=== PATIENT | female | born 1950 | race Caucasian/White ===

== ENCOUNTER 2021-01-05 14:59 | Emergency (ER) | payer BC, MEDICARE ==
[2021-01-05] MEDS ORDERED: Rivaroxaban 15 MG Tab PO STA (15:21)
[2021-01-05] MEDS ORDERED: Enoxaparin 100 MG/1 ML Syringe SUBCUT ONE (15:22)
[2021-01-05] MEDS ORDERED: Sodium Chloride 0.9% 10 ML Syringe FLUSH PRN (15:32)
[2021-01-05] MEDS ORDERED: HYDROmorphone 0.5 MG/0.5 ML Syringe IVPUSH ONE ×2 (15:35→19:51)
[2021-01-05] MEDS ORDERED: Ondansetron 4 MG/2 ML SDV IVPUSH ONE (15:35)
[2021-01-05] MEDS ORDERED: Sodium Chloride 0.9% 1,000 ML IV SCH (15:45)
--- NOTE | 2021-01-05 16:12 | EDM.PDOC ---
ED HPI GENERAL MEDICAL PROBLEM - General Chief Complaint: Lower Extremity Injury/Pain Stated Complaint: BLOOD CLOT IN R LEG Time Seen by Provider: 01/05/21 15:15 Source of Information: Reports: Patient History Limitations: Reports: No Limitations, Other (ED vital signs reveal a temp of 98.1, pulse of 62, respiratory rate of 16, blood pressure 190/68, pulse ox 96% on room air.) - History of Present Illness INITIAL COMMENTS - FREE TEXT/NARRATIVE: 70-year-old female presents to the emergency department today with complaints of pain to her right hip. 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 She was seen at the clinic by her primary care provider Lazara Romero who sent her here to [facility] to have an ultrasound of the right lower extremity and a right hip x-ray. Ultrasound of right lower extremity reveals posterior tibial veins appears to show some clot. Peroneal vein is not visualized. Mild subcutaneous edema. No additional venous abnormality is seen. Radiologist impression of the x-ray of the right hip: 1. Slight joint space narrowing within the right hip 2. Right hip exam is otherwise unremarkable. Patient denies any history of blood clots in the past. She does not smoke. She does not take any prescription medications as she states she took herself off of all of them. She denies any recent fever, chills, cough, shortness of breath, nausea, vomiting or diarrhea. She is fairly uncomfortable sitting in the bed with her right leg flexed. Right Groin Pain Score (Numeric/FACES): 10 - Related Data Allergies Allergy/AdvReac Type Severity Reaction Status Date / Time morphine Allergy Rash Verified 01/05/21 15:10 Penicillins Allergy Rash Verified 01/05/21 15:10 keerthi Allergy Cannot Verified 01/05/21 15:10 Remember Home Meds: Home Meds ursodioL [Ursodiol] 500 mg PO TID 01/05/21 [History] Past Medical History Gastrointestinal History: Reports: Other (See Below) Other Gastrointestinal History: primary biliary cirrhosis Stage I Endocrine/Metabolic History: Reports: Other (See Below) Other Endocrine/Metabolic History: unexplained bruising - Past Surgical History HEENT Surgical History: Reports: Cataract Surgery Musculoskeletal Surgical History: Reports: Knee Replacement, Shoulder Surgery Social & Family History - Tobacco Use Tobacco Use Status *Q: Never Tobacco User Second Hand Smoke Exposure: No - Recreational Drug Use Recreational Drug Use: No Review of Systems - Review of Systems Review Of Systems: See Below Constitutional: Reports: No Symptoms. Denies: Chills, Diaphoresis, Fever, Weakness Eyes: Reports: No Symptoms Ears: Reports: No Symptoms Nose: Reports: No Symptoms Mouth/Throat: Reports: No Symptoms Respiratory: Reports: No Symptoms. Denies: Shortness of Breath, Pleuritic Chest Pain, Cough GI/Abdominal: Reports: Abdominal Pain (right lower quadrant). Denies: Constipation, Diarrhea, Nausea, Vomiting Genitourinary: Reports: No Symptoms Musculoskeletal: Reports: Leg Pain (right lower extremity) Skin: Reports: No Symptoms Neurological: Reports: No Symptoms Psychiatric: Reports: Agitation ED EXAM, GENERAL - Physical Exam Exam: See Below Exam Limited By: No Limitations General Appearance: Alert, WD/WN, Mild Distress Ears: Normal External Exam, Hearing Grossly Normal Nose: Normal Inspection Throat/Mouth: Normal Inspection, Normal Lips, Normal Voice, No Airway Compromise Head: Atraumatic, Normocephalic Neck: Normal Inspection Respiratory/Chest: No Respiratory Distress, Lungs Clear, Normal Breath Sounds, No Accessory Muscle Use, Chest Non-Tender Cardiovascular: Normal Peripheral Pulses, No Edema, No Murmur. No: Regular Rate, Rhythm (irregular) Peripheral Pulses: 2+: Radial (L), Radial (R) GI/Abdominal: Normal Bowel Sounds, Soft, No Distention, Tender (right lower quadrant) (Female) Exam: Deferred Rectal (Female) Exam: Deferred Back Exam: Normal Inspection Extremities: Normal Inspection, No Pedal Edema, Normal Capillary Refill. No: Non-Tender (right lower extremity tendernss, specifically the knee) Neurological: Alert, Oriented, Normal Cognition Psychiatric: Normal Affect, Normal Mood Skin Exam: Warm, Dry, Intact, Normal Color, No Rash Lymphatic: No Adenopathy Course - Vital Signs Text/Narrative:: 70-year-old female who presents with DVTs to the right lower extremity and right hip pain. However upon further assessment patient has significant amount of tenderness to right lower quadrant of her abdomen. Minimal palpation causes inc reased pain. Patient is unable to raise her right leg up due to exquisite pain in her right lower quadrant. She states she does still have her appendix. She denies any recent fever or chills. She denies any nausea, vomiting or diarrhea. Denies any issues with voiding such as burning, frequency or urgency. I have ordered for the patient to receive a CT of the chest as clot could potentially h ave moved up into her lungs. I have also ordered a CT of the abdomen and pelvis due to right lower quadrant abdominal pain. I have also ordered labs and a urinalysis on this patient. She is complaining of a significant amount of pain to the right lower quadrant so I have ordered IV fluids at a maintenance rate, Dilaudid and Zofran. Last Recorded V/S: Last Vital Signs Temp 98.1 F 01/05/21 15:08 Pulse 62 01/05/21 15:08 Resp 16 01/05/21 15:08 BP 190/68 H 01/05/21 15:08 Pulse Ox 96 01/05/21 15:08 - Orders/Labs/Meds Orders: Active Orders 24 hr Category Date Time Status CORONAVIRUS COVID-19 MERCEDES [MOLEC] Stat Lab 01/05/21 19:15 Ordered Sodium Chloride 0.9% [Normal Saline] 1,000 ml Med 01/05/21 15:45 Active IV ASDIRECTED Sodium Chloride 0.9% [Normal Saline] 100 ml Med 01/05/21 17:00 Active IV ASDIRECTED Sodium Chloride 0.9% [Saline Flush] Med 01/05/21 17:00 Active 10 ml FLUSH ASDIRECTED Sodium Chloride 0.9% [Saline Flush] Med 01/05/21 15:32 Active 10 ml FLUSH ASDIRECTED PRN Saline Lock Insert [OM.PC] Stat Oth 01/05/21 15:32 Ordered Medication Orders Sodium Chloride (Normal Saline) 1,000 mls @ 150 mls/hr IV ASDIRECTED JEFFREY Last Admin: 01/05/21 15:49 Dose: 150 mls/hr Documented by: [place] Sodium Chloride (Normal Saline) 100 mls @ 60 mls/hr IV ASDIRECTED JEFFREY Last Admin: 01/05/21 17:15 Dose: 60 mls/hr Documented by: BUSAmbreenGRSandra Sodium Chloride (Sodium Chloride 0.9% 10 Ml Syringe) 10 ml FLUSH ASDIRECTED PRN PRN Reason: Keep Vein Open Last Admin: 01/05/21 15:54 Dose: 10 ml Documented by: [place] Sodium Chloride (Sodium Chloride 0.9% 10 Ml Syringe) 10 ml FLUSH ASDIRECTED JEFFREY Last Admin: 01/05/21 17:16 Dose: 10 ml Documented by: CIRO Labs: Laboratory Tests 01/05/21 01/05/21 01/05/21 Range/Units 15:48 15:48 17:40 WBC 16.01 H (3.98-10.04) K/mm3 RBC 4.41 (3.98-5.22) M/mm3 Hgb 12.7 (11.2-15.7) gm/dl Hct 39.1 (34.1-44.9) % MCV 88.7 (79.4-94.8) fl MCH 28.8 (25.6-32.2) pg MCHC 32.5 (32.2-35.5) g/dl RDW Std Deviation 38.5 (36.4-46.3) fL Plt Count 377 H (182-369) K/mm3 MPV 9.5 (9.4-12.3) fl Neut % (Auto) 89.8 H (34.0-71.1) % Lymph % (Auto) 5.7 L (19.3-51.7) % [place] % (Auto) 4.1 L (4.7-12.5) % Eos % (Auto) 0.1 L (0.7-5.8) Baso % (Auto) 0.1 (0.1-1.2) % Neut # (Auto) 14.39 H (1.56-6.13) K/mm3 Lymph # (Auto) 0.91 L (1.18-3.74) K/mm3 [place]rie # (Auto) 0.66 H (0.24-0.36) K/mm3 Eos # (Auto) 0.01 L (0.04-0.36) K/mm3 Baso # (Auto) 0.01 (0.01-0.08) K/mm3 Manual Slide Review Abnormal smear Sodium 140 (136-145) mEq/L Potassium 3.6 (3.5-5.1) mEq/L Chloride 104 (98-107) mEq/L Carbon Dioxide 27 (21-32) mEq/L Anion Gap 12.6 (5-15) BUN 14 (7-18) mg/dL Creatinine 0.9 (0.55-1.02) mg/dL Est Cr Clr Drug Dosing 53.09 mL/min Estimated GFR (MDRD) > 60 (>60) mL/min BUN/Creatinine Ratio 15.6 (14-18) Glucose 141 H (80-115) mg/dL Calcium 8.7 (8.5-10.1) mg/dL Magnesium 1.8 (1.8-2.4) mg/dl Total Bilirubin 0.8 (0.2-1.0) mg/dL AST 28 (15-37) U/L ALT 22 (14-59) U/L Alkaline Phosphatase 146 H (46-116) U/L C-Reactive Protein 2.0 H* (<1.0) mg/dL Total Protein 8.2 (6.4-8.2) g/dl Albumin 3.9 (3.4-5.0) g/dl Globulin 4.3 gm/dL Albumin/Globulin Ratio 0.9 L (1-2) Urine Color Yellow (Yellow) Urine Appearance Clear (Clear) Urine pH 6.0 (5.0-8.0) Ur Specific [place] 1.025 (1.005-1.030) Urine Protein Negative (Negative) Urine Glucose (UA) Negative (Negative) Urine Ketones Trace H (Negative) Urine Occult Blood 1+ H (Negative) Urine Nitrite Negative (Negative) Urine Bilirubin Negative (Negative) Urine Urobilinogen 0.2 (0.2-1.0) Ur Leukocyte Esterase Negative (Negative) U Hyaline Cast (Auto) 0-5 (0-5) /lpf Urine RBC 0-5 (0-5) /hpf Urine WBC 0-5 (0-5) /hpf Ur Squamous Epith Cells 0-5 (0-5) /hpf Urine Bacteria Rare (FEW) /hpf Urine Mucus Few (FEW) /hpf Urine Yeast Rare H (NOT SEEN) Meds: Medications Generic Name Dose Route Start Last Admin Trade Name Freq PRN Reason Stop Dose Admin Sodium Chloride 1,000 mls @ 150 mls/hr 01/05/21 15:45 01/05/21 15:49 Normal Saline IV 150 mls/hr ASDIRECTED JEFFREY Administration Sodium Chloride 100 mls @ 60 mls/hr 01/05/21 17:00 01/05/21 17:15 Normal Saline IV 60 mls/hr ASDIRECTED JEFFREY Administration Sodium Chloride 10 ml 01/05/21 15:32 01/05/21 15:54 Sodium Chloride 0.9% 10 Ml Syringe FLUSH 10 ml ASDIRECTED PRN Administration Keep Vein Open Sodium Chloride 10 ml 01/05/21 17:00 01/05/21 17:16 Sodium Chloride 0.9% 10 Ml Syringe FLUSH 10 ml ASDIRECTED JEFFREY Administration Discontinued Medications Generic Name Dose Route Start Last Admin Trade Name Freq PRN Reason Stop Dose Admin Diatrizoate Meglum/Diatrizoate Sod 120 ml 01/05/21 16:47 01/05/21 17:14 Diatrizoate Meglumine/Diatrizoate Sodium 37% 120 Ml Bottle PO 01/05/21 16:48 60 ml ONETIME ONE Administration Enoxaparin Sodium 100 mg 01/05/21 15:22 01/05/21 15:53 Enoxaparin 100 Mg/1 Ml Syringe SUBCUT 01/05/21 15:23 100 mg ONETIME ONE Administration Hydromorphone HCl 0.5 mg 01/05/21 15:35 01/05/21 15:51 Hydromorphone 0.5 Mg/0.5 Ml Syringe IVPUSH 01/05/21 15:36 0.5 mg ONETIME ONE Administration Iopamidol 50 ml 01/05/21 16:47 01/05/21 17:15 Iopamidol 755 Mg/Ml 50 Ml Bottle IVPUSH 01/05/21 16:48 50 ml ONETIME ONE Administration Iopamidol 100 ml 01/05/21 16:47 01/05/21 17:15 Iopamidol 755 Mg/Ml 100 Ml Bottle IVPUSH 01/05/21 16:48 100 ml ONETIME ONE Administration Ondansetron HCl 4 mg 01/05/21 15:35 01/05/21 15:49 Ondansetron 4 Mg/2 Ml Sdv IVPUSH 01/05/21 15:36 4 mg ONETIME ONE Administration Rivaroxaban 15 mg 01/05/21 15:21 01/05/21 16:28 Rivaroxaban 15 Mg Tab PO 01/05/21 15:22 15 mg NOW STA Administration - Re-Assessments/Exams Free Text/Narrative Re-Assessment/Exam: 01/05/21 17:11 Labs reveal WBC of 10.01, hemoglobin 12.7, hematocrit 39.1, platelet count 377, neutrophil percentage 89.8 without bands chemistry reveals a sodium of 140, potassium 3.6, anion gap 12.6, BUN 14, creatinine 0.9, glucose 141, magnesium 1.8, AST 28, ALT 22, alk phos 146, C-reactive protein 2.0 01/05/21 18:11 Urinalysis reveals trace of ketones, 1+ occult blood, and rare yeast 01/05/21 18:[address] of the chest: Pulmonary arteries are fairly well opacified. There are no filling defects seen to indicate pulmonary embolism. Thoracic aorta shows slightly atherosclerotic change without aneurysm. Mediastinum and hilar regions show no adenopathy or mass. No axillary or adenopathy is seen. No pericardial effusion is seen. Lung window settings were reviewed. No acute parenchymal changes seen. No pleural effusions or pneumothorax are seen. Bone window settings were reviewed which show previous right-sided shoulder surgery. Mild degenerative changes scattered within the spine. No acute osseous abnormality is appreciated. 01/05/21 19:[address] of the abdomen and pelvis: 1. Enlargement of the right iliac is muscle which continues into the pelvis. There is mild increased density being seen around the iliac is muscle. Findings are felt highly suspicious for hemorrhage within the right iliac is muscle with extravasation of blood outside the iliac us muscle. 01/05/21 19:24 I called [facility] call and they transferred me to the hospitalist, Dr. Flores. Discussed the case with her and she does accept the patient in transport. Patient will need to be transported via ambulance. Covid swab is pending. Departure - Departure Time of Disposition: 19:25 Disposition: DC/Tfer to [facility] Condition: Fair Clinical Impression: Hemorrhage DVT (deep venous thrombosis) Qualifiers: DVT location: lower extremity Affected thrombotic vein of extremity: tibial Chronicity: acute Laterality: unspecified laterality Qualified Code(s): I82.449 - Acute embolism and thrombosis of unspecified tibial vein - Discharge Information Referrals: Asiya Michelle PA-C [Primary Care Provider] - Forms: ED Department Discharge Sepsis Event Note (ED) - Evaluation Sepsis Screening Result: No Definite Risk - Focused Exam Vital Signs: Vital Signs Temp Pulse Resp BP Pulse Ox 01/05/21 15:08 98.1 F 62 16 190/68 H 96 - My Orders Last 24 Hours: My Active Orders 01/05/21 15:32 Sodium Chloride 0.9% [Saline Flush] 10 ml FLUSH ASDIRECTED PRN Saline Lock Insert [OM.PC] Stat 01/05/21 15:45 Sodium Chloride 0.9% [Normal Saline] 1,000 ml IV ASDIRECTED 01/05/21 17:00 Sodium Chloride 0.9% [Normal Saline] 100 ml IV ASDIRECTED Sodium Chloride 0.9% [Saline Flush] 10 ml FLUSH ASDIRECTED 01/05/21 19:15 CORONAVIRUS COVID-19 [facility] [MOLEC] Stat - Assessment/Plan Last 24 Hours: My Active Orders 01/05/21 15:32 Sodium Chloride 0.9% [Saline Flush] 10 ml FLUSH ASDIRECTED PRN Saline Lock Insert [OM.PC] Stat 01/05/21 15:45 Sodium Chloride 0.9% [Normal Saline] 1,000 ml IV ASDIRECTED 01/05/21 17:00 Sodium Chloride 0.9% [Normal Saline] 100 ml IV ASDIRECTED Sodium Chloride 0.9% [Saline Flush] 10 ml FLUSH ASDIRECTED 01/05/21 19:15 CORONAVIRUS COVID-19 MERCEDES [MOLEC] Stat
[2021-01-05] MEDS ORDERED: Diatrizoate Meglumine/Diatrizoate Sodium 37% 120 ML Bottle PO ONE (16:47)
[2021-01-05] MEDS ORDERED: Iopamidol 755 MG/ML 50 ML Bottle IVPUSH ONE (16:47)
[2021-01-05] MEDS ORDERED: Iopamidol 755 Mg/ML 100 ML Bottle IVPUSH ONE (16:47)
[2021-01-05] MEDS ORDERED: Sodium Chloride 0.9% 100 ML IV SCH (17:00)
[2021-01-05] MEDS ORDERED: Sodium Chloride 0.9% 10 ML Syringe FLUSH SCH (17:00)
--- NOTE | 2021-01-05 18:28 | CT ---
CT chest Technique: Multiple axial sections through the chest were obtained. Intravenous contrast was utilized. Study has been performed as a pulmonary angiogram protocol. Findings: Pulmonary arteries are fairly well opacified. There are no filling defects seen to indicate pulmonary embolism. Thoracic aorta shows slight atherosclerotic change without aneurysm. Mediastinum and hilar regions show no adenopathy or mass. No axillary adenopathy is seen. No pericardial effusion is seen. Lung window settings were reviewed. No acute parenchymal change is seen. No pleural effusions or pneumothorax are seen. Bone window settings were reviewed which show previous right-sided shoulder surgery. Mild degenerative change is scattered within the spine. No acute osseous abnormality is appreciated. Impression: 1. No findings of pulmonary embolism. 2. Other findings which are believed to be incidental. Nothing acute is appreciated. Diagnostic code #2
--- NOTE | 2021-01-05 18:48 | CT ---
CT abdomen and pelvis Technique: Multiple axial sections were obtained from above the dome of the diaphragm inferiorly through the pubic symphysis. Intravenous and oral contrast was utilized. Delayed images were obtained through the bladder. Reconstructed coronal and sagittal images were obtained. Comparison: No previous abdominal or pelvic imaging available. Findings: Liver contains no focal parenchymal abnormality. Spleen is normal. Adrenal glands show no nodule. Gallbladder contains no calcified gallstones. Kidneys show symmetric contrast enhancement. Very minimal cyst is noted within the left kidney. Pancreas is within normal limits. Aorta shows no aneurysm. No retroperitoneal adenopathy is seen. No pelvic mass or adenopathy is noted. There is enlargement of the right iliacus muscle compatible with hematoma with a muscle showing enlargement outside the pelvis into the right hip. Mild increased density is seen around this muscle presumably due to slight extravasation of blood. Celiac axis and superior mesenteric arteries show no focal stenosis. No focal stenosis is seen within the renal arteries or inferior mesenteric artery. Portal vein shows normal enhancement Appendix is seen which is normal. No additional abnormality is appreciated. Delayed images show contrast within the distal ureters and bladder. Bone window settings were reviewed which show mild scattered degenerative change within the spine. Impression: 1. Enlargement of the right iliacus muscle which continues into the pelvis. There is mild increased density being seen around the iliacus muscle. Findings are felt highly suspicious for hemorrhage within the right iliacus muscle with extravasation of blood outside the iliacus muscle. 2. Other findings believed to be incidental as noted above. Diagnostic code #5
== END 2021-01-05 20:00 ==
LOC: JD.ED 14:59
DX: I82.449 Acute embolism and thrombosis of unspecified tibial vein (principal); Z88.5 Allergy status to narcotic agent; Z88.0 Allergy status to penicillin; Z20.822 Contact with and (suspected) exposure to COVID-19
CPT/HCPCS: 36415; 71275; 74177; 80053; 81001; 83735; 85025; 86140; 87635; 96372; 96374; 96375; 96376; 99285; A9270; J1170; J1650; J2405; J7030; Q9963; Q9967; U0002